=== PATIENT | female | born 1940 | race Caucasian/White ===

== ENCOUNTER → 2018-05-12 | Outpatient (CLI) | payer OTHER ==
[~2018-05-12] MED LIST: LEVO50TA4 PO; MAPA500T13 PO; OMEP20TA93 PO; OXYB5TAB8 PO; TRAM50TA PO
== END ==
LOC: CPRE 14:27
PROVIDERS: ATTEND Obstetrics & Gynecology Gynecologic Oncology
DX: Z01.810 Encounter for preprocedural cardiovascular examination (principal); Z01.811 Encounter for preprocedural respiratory examination; Z01.812 Encounter for preprocedural laboratory examination; R19.00 Intra-abdominal and pelvic swelling, mass and lump, unspecified site

== ENCOUNTER 2018-05-23 08:25 | Observation (INO) | payer OTHER ==
[~2018-05-23] VITALS: Ht 157.5 cm; Wt 92.9 kg
[~2018-05-23 08:25] MED LIST changes: -TRAM50TA PO
[2018-05-23] MEDS ORDERED: LACTATED RINGER'S 1000 ML IV PRN (08:45)
[2018-05-23] MEDS ORDERED: METOPROLOL TARTRATE 25 MG TAB PO PRN (08:45)
[2018-05-23] MEDS ORDERED: POVIDONE IODINE 5% (ANTISEPSIS KIT) 4 APPLICATIONS EACH NARE PRN (08:45)
[2018-05-23] MEDS ORDERED: SODIUM CHLORID 0.9% 500 ML IV PRN (08:45)
[2018-05-23] MEDS ORDERED: CHLORHEXIDINE GLUCONATE 2 % 1 PACK (2 CLOTHS) TOPICAL PRN (08:45)
[2018-05-23] MEDS ORDERED: HEPARIN SODIUM - SQ 10,000 UNITS/ML VIAL SQ SCH (09:00)
[2018-05-23] MEDS ORDERED: ceFAZolin 2 GM/DEX PREMIX 50 ML IV SCH (09:00)
[2018-05-23] MEDS ORDERED: SODIUM CHLORIDE 0.9% 20 ML VIAL IV ONE (12:00)
[2018-05-23] MEDS ORDERED: LACTATED RINGER'S 1000 ML INJ 1,000 ML IV ONE (12:00)
[2018-05-23] MEDS ORDERED: NEOSTIGMINE 5 MG/5 ML SYRINGE IV PUSH ONE (12:00)
[2018-05-23] MEDS ORDERED: GLYCOPYRROLATE 1 MG/5 ML SYRINGE IV PUSH ONE (12:00)
[2018-05-23] MEDS ORDERED: STERILE WATER FOR INJECTION 20 ML VIAL IV ONE (12:00)
[2018-05-23] MEDS ORDERED: LIDOCAINE HCL 1% PF 5 ML SYRINGE OTHER ONE (12:00)
[2018-05-23] MEDS ORDERED: DEXAMETHASONE SOD PHOS 4 MG/ML VIAL IV ONE (12:00)
[2018-05-23] MEDS ORDERED: PROPOFOL 200 MG/20 ML AMP IV ONE (12:00)
[2018-05-23] MEDS ORDERED: VECURONIUM BROMIDE 20 MG VIAL IV ONE (12:00)
[2018-05-23] MEDS ORDERED: ONDANSETRON HCL 4 MG/2 ML VIAL IV PUSH ONE (12:00)
[2018-05-23] MEDS ORDERED: ROCURONIUM INJ 50 MG/5 ML SYRINGE IV PUSH ONE (12:00)
[2018-05-23] MEDS ORDERED: ACETAMINOPHEN 1000 MG/100 ML 100 ML IV ONE (13:55)
[2018-05-23] MEDS ORDERED: LIDOCAINE 1%/EPINEPHrine 1:100,000 SOLN 30 ML VIAL ONE (15:02)
[2018-05-23] MEDS ORDERED: diphenhydrAMINE HCL 25 MG CAP PO PRN (16:15)
[2018-05-23] MEDS ORDERED: SODIUM CHLORIDE 0.9% FLUSH 10 ML FLUSH IV FLUSH PRN (16:15)
[2018-05-23] MEDS ORDERED: oxyCODONE/ACETAMINOPHEN 5 MG/325 MG TAB PO PRN (16:15)
[2018-05-23] MEDS ORDERED: LORazepam 0.5 MG TAB PO PRN (16:15)
[2018-05-23] MEDS: RESP: ALBUTEROL 1.25 MG/3 ML NEB (SCH) NEB ×2 (16:15→21:57)
[2018-05-23] MEDS ORDERED: DO NOT ADM ANY ANTICOAGULANT DRUGS PRN (16:24)
[2018-05-23] MEDS ORDERED: MIDAZOLAM HCL 2 MG/2 ML VIAL ONE (16:27)
[2018-05-23] MEDS ORDERED: *morphine SULFATE 4 MG/ML PERIprocedure ONLY ONE ×2 (16:58→17:08)
[2018-05-23] MEDS: KETOROLAC TROMETHAMINE 30 MG/ML (IVP) VIAL IVP SCH ×2 (17:00→23:38)
[2018-05-23] MEDS ORDERED: HYDROmorphone HCL PF 2 MG/ML VIAL ONE (17:11)
[2018-05-23] MEDS ORDERED: *RESP: ALBUTEROL 2.5 MG/3 ML NEB (PRN) PERIprocedural Use ONLY NEB ONE (17:31)
[2018-05-23] MEDS: D5-1/2 NS + KCL 20 MEQ INJ 1,000 ML IV SCH (17:50)
[2018-05-23 19:29] VITALS: PULSE 55
[2018-05-23 19:32] VITALS: BP 116/70; PULSE 57; RESP 12; TEMP 97.8; O2SAT 99
[2018-05-23 21:57] VITALS: O2SAT 99
[2018-05-23] MEDS: OXYBUTYNIN CHLORIDE 5 MG TAB PO SCH (22:08)
[2018-05-23] MEDS: oxyCODONE/ACETAMINOPHEN 5 MG/325 MG TAB PO PRN (22:12)
[2018-05-23] MEDS: SODIUM CHLORIDE 0.9% FLUSH 10 ML FLUSH IV FLUSH SCH (22:12)
[2018-05-23 23:29] VITALS: BP 117/60; PULSE 65; RESP 16; TEMP 98; O2SAT 98
[2018-05-23] MEDS: ONDANSETRON ODT 4 MG TAB PO PRN (23:37)
[2018-05-24] VITALS (11 sets, daily range): BP systolic 116–124; BP diastolic 57–67; PULSE 58–72; RESP 16–18; TEMP 97.6–98.3; O2SAT 95–98
[2018-05-24] MEDS: D5-1/2 NS + KCL 20 MEQ INJ 1,000 ML IV SCH ×2 (03:17→12:10)
[2018-05-24] MEDS: oxyCODONE/ACETAMINOPHEN 5 MG/325 MG TAB PO PRN ×3 (03:22→13:45)
[2018-05-24] MEDS: RESP: ALBUTEROL 1.25 MG/3 ML NEB (SCH) NEB ×3 (03:55→15:27)
[2018-05-24] MEDS ORDERED: LEVOTHYROXINE SODIUM 50 MCG TAB PO SCH (06:00)
[2018-05-24] MEDS: KETOROLAC TROMETHAMINE 30 MG/ML (IVP) VIAL IVP SCH ×2 (06:07→10:21)
[2018-05-24] MEDS ORDERED: OXYC1TAB63 PO (07:06)
--- NOTE | 2018-05-24 07:57 | MP ---
cc: Kristy Maki MD, Prachi MD DATE OF OPERATION: 05/24/2018 PREOPERATIVE DIAGNOSES: 1. Pelvic mass. 2. Status post prior hysterectomy. POSTOPERATIVE DIAGNOSIS: 1. Right ovarian cystadenoma. 2. Status post prior hysterectomy. 3. Minimal pelvic adhesions. PROCEDURE: Robotic-assisted laparoscopic bilateral salpingo-oophorectomy (with resection of right ovarian mass), right ureterolysis, lysis of adhesions. ESTIMATED BLOOD LOSS: 25 mL. IV FLUIDS: 1600 mL. URINE OUTPUT: 75 mL. HISTORY: A 77-year-old female who underwent imaging being evaluated after trauma, found to have a mass in the pelvis, mostly cystic. It had increased somewhat over time on sequential ultrasounds, although it remained asymptomatic. She was concerned and was in favor of definitive surgical resection. She has been counseled regarding surgical management. She is seen again in the preop holding area with the findings and plan of care are again discussed and reviewed. She expressed a good understanding and would like to move forward with surgery. By history, she has had a hysterectomy and had her left tube and ovary removed and this mass seems to be arising from the right ovary. FINDINGS: The uterus and cervix are surgically absent. The right ovary is enlarged, cystic to approximately 5-6 cm, adherent to the right pelvic sidewall. On the left side partially behind the peritoneum and partially behind the colon, the left tube and ovary are in fact in situ. They appeared normal, but clearly the left tube and ovary have not been resected. Peritoneal surfaces were smooth. There were no implants. No ascites. No other abnormality detected to suggest malignancy. Frozen section of the right ovary showed it to be a benign cystadenoma. PROCEDURE: She is taken to the operating room, placed in the dorsal lithotomy position after general endotracheal anesthesia was administered. A timeout was undertaken. She was identified by sight recognition and hospital ID bracelet and the proposed procedure was reviewed and confirmed. She was carefully positioned and padded in the usual fashion. All sites were checked and noted to be properly aligned properly aligned with no malalignments or pressure points. She was prepped and draped in a sterile fashion. Serrato catheter placed in the bladder. Orogastric tube placed in the stomach on suction. With manual elevation of the abdominal wall, a 5 mm cannula was introduced into the left upper quadrant. Carbon dioxide gas was insufflated and an atraumatic entry was confirmed. A 12 mm cannula placed in the midline above the umbilicus, 8 mm cannula was placed in the right upper quadrant, left lateral quadrant and the original 5 mm exchanged for an 8 mm cannula. She was placed in some Trendelenburg position. Peritoneal washings were obtained for cytology. The anatomy was surveyed with findings as described above. The small bowel was folded back on its mesenteric root and 3 Ray-Karyn sponges were placed around the root of the small bowel mesentery. The robotic system brought into the operative field and attached in the usual fashion. Monopolar scissors, fenestrated bipolar forceps and ProGrasp manipulator placed in arms 1, 2, and 3 respectively and I took my place at the surgeon's console. The residual right round ligament was isolated, cauterized and transected. The anterior and posterior leafs of the broad ligament were opened. The retroperitoneal dissection was carried to the level of the pelvic brim. The right ureter was identified and was in close proximity to the gonadal vessels and the ureter was adherent to the posterolateral aspect of the right ovarian mass. A window in the peritoneum was opened near the mass and dissection was carried out proximally to elevate the gonadal vessels as the ureter was retracted posteriorly. The ureter was dissected free along its course as adhesions were taken down with sharp dissection. The mass was elevated. The ureter was freed along its course in the pelvis with further dissection until the ureter could be isolated away from the mass and could be retracted posteriorly and the mass could be elevated touch now by its blood supply and the residual right uteroovarian ligament. Now that the gonadal vessels were cauterized and transected at the level of the pelvic brim and remaining adhesions were taken down to isolate the residual utero-ovarian ligament, which was cauterized and transected, thereby removing the right adnexal mass, which was placed in the right paracolic gutter for later retrieval. The ureter was inspected. There was good peristalsis along its course without injury and without compromise. Attention was directed towards the left side where the residual left round ligament was isolated, cauterized and transected. The anterior and posterior leaves of the broad ligament were opened. The colon was mobilized to gain access to the retroperitoneal space. The left ureter was identified. The left infundibulopelvic ligament was isolated. The intervening peritoneum was opened. The infundibulopelvic ligament was isolated to the level of the pelvic brim where it was cauterized and transected. Dissection was carried out distally to free up remaining adhesions to isolate the residual utero-ovarian ligament, which was isolated, cauterized and transected, thereby removing the left tube and ovary, which were placed in the right pericolic gutter for later retrieval. Sites were irrigated. All sites were completely hemostatic. No injury to surrounding structures. Minimal blood loss and with benign appearing tissue, it was felt that all reasonable surgical objectives had been completed. The robotic instruments were removed. The robotic system was disengaged from the operative field. I reentered the bedside under sterile condition. An Endo Catch bag was used to capture the bilateral tubes and ovary, which were brought through the abdominal wall. The cystic component of the right ovarian mass was drained, which allowed delivery of the specimens contained within the Endo Catch bag. Next, each of the 3 Ray-Karyn sponges, that had been placed in the peritoneal cavity, were removed. They were removed, individually. Each were inspected and noted to be removed in their entirety. Visual inspection confirmed there were no remaining foreign objects in the peritoneal cavity. Preliminary counts were correct. All sites hemostatic and attention was directed toward closing. The 12 mm fascial defect was closed with interrupted 0 Vicryl sutures using a needle passer fascial closure apparatus. They were tied securely which rendered the fascia completely airtight and hemostatic. The remaining cannulas were withdrawn. Carbon dioxide gas was removed. 3-0 Vicryl subcutaneous, 3-0 Vicryl subcuticular and Steri-Strips were used to close these incisions. Pelvic exam confirmed there were no remaining foreign objects in the vagina. Final counts were correct. She was returned to dorsal supine position and was pending reversal of anesthesia when I left the operating room to precede her to the postanesthesia care unit. MD SIVAKUMAR Fowler/MACO , 07:18 AM , 07:56 AM
[2018-05-24] MEDS: OXYBUTYNIN CHLORIDE 5 MG TAB PO SCH (08:31)
[2018-05-24] MEDS: SODIUM CHLORIDE 0.9% FLUSH 10 ML FLUSH IV FLUSH SCH (09:00)
[2018-05-24] MEDS ORDERED: PANTOPRAZOLE SOD 20 MG DELAYED RELEASE TAB PO SCH (09:00)
--- NOTE | 2018-05-24 09:01 | MD ---
cc: Kristy Maki MDdhGeovanna barrios DO DATE OF DISCHARGE: PROCEDURE: Robotic-assisted laparoscopic bilateral salpingo-oophorectomy (with resection of right ovarian mass). HOSPITAL COURSE: She did well in the early postoperative period. Hemodynamically stable. Ins and outs 1840/400 plus. Serrato catheter removed pending voiding. Labs pending at the time of this dictation. PHYSICAL EXAMINATION: VITAL SIGNS: Afebrile, pulse 63, respirations 16, blood pressure 124/67, O2 saturation is 98%. GENERAL: Alert and oriented x 3. LUNGS: Clear. CARDIOVASCULAR: Regular rate and rhythm. ABDOMEN: Soft. Incision is clean and dry. EXTREMITIES: Nontender. ASSESSMENT: Postoperative day number 1, doing well in early postoperative period. Steps taken at surgery and preliminary pathology discussed. Activities and restrictions are reviewed. Questions were asked and answered. She expressed good understanding. PLAN: I anticipate she will meet criteria for discharge to home today. She will contact our office to ensure she has followup scheduled in 2 weeks. She will resume prior medications, have a prescription for Percocet as needed for pain and she is to contact our office should she have any questions or problems between now and the time of scheduled followup. Kristy Maki MD KLM/KD , 07:10 AM , 08:59 AM
[2018-05-24 09:33] LABS: AUTOMATED NEUTROPHIL # 9.5 TH/MM3 (1.8-7.7); BASOPHIL % 0.3 % (0.0-2.0); EOSINOPHIL % 0.2 % (0.0-4.0); HEMATOCRIT 35.5 % (35.0-46.0); HEMOGLOBIN 11.4 GM/DL (11.6-15.3); LYMPH % 12.2 % (9.0-44.0); LYMPHOCYTE # 1.4 TH/MM3 (1.0-4.8); MEAN CELL VOLUME 92.4 FL (80.0-100.0); MEAN CORPUSCULAR HEMOGLOBIN 29.7 PG (27.0-34.0); MEAN CORPUSCULAR HGB CONC 32.2 % (32.0-36.0); MEAN PLATELET VOLUME 8.2 FL (7.0-11.0); MONO % 6.3 % (0.0-8.0); MONOCYTE # 0.7 TH/MM3 (0-0.9); PLATELET COUNT 276 TH/MM3 (150-450); RED BLOOD COUNT 3.85 MIL/MM3 (4.00-5.30); WHITE BLOOD COUNT 11.7 TH/MM3 (4.0-11.0)
[2018-05-24] MEDS: ONDANSETRON ODT 4 MG TAB PO PRN (10:12)
[2018-05-24 10:38] LABS: BICARBONATE 26.8 MEQ/L (21.0-32.0); CREATININE 0.73 MG/DL (0.50-1.00)
== END 2018-05-24 18:21 | disposition home or self-care (01) ==
LOC: HSDC 08:25 → HSDI 16:13 → HCIN 18:45
PROVIDERS: ADMIT Obstetrics & Gynecology Gynecologic Oncology; ATTEND Obstetrics & Gynecology Gynecologic Oncology
DX: D27.0 Benign neoplasm of right ovary (principal); N73.6 Female pelvic peritoneal adhesions (postinfective); J44.9 Chronic obstructive pulmonary disease, unspecified; J45.909 Unspecified asthma, uncomplicated; Z90.710 Acquired absence of both cervix and uterus
CPT/HCPCS: 00840; 58661; 80048; 85025; 86850; 86900; 86901; 88112; 88305; 88307; 88331; 94150; 94640; 94664; 96374; 96376; G0378; J0131; J0690; J1100; J1170; J1644; J1885; J2250; J2270; J2405; J2710; J3010; J3480; J7120; J7613